=== PATIENT | male | born 1950 | race Native Hawaiian/Other Pacific Islander ===

== ENCOUNTER 2021-07-02 14:30 | Outpatient (CLI) | payer BC, OTHER ==
[~2021-07-02 14:30] MED LIST: ASPIRIN ADULT L81 MG; MICARDIS40 MG PO
== END 2021-07-02 19:30 | disposition home or self-care (01) ==
LOC: MRI 14:30
PROVIDERS: ATTEND Nurse Practitioner
DX: M54.41 Lumbago with sciatica, right side (principal)